=== PATIENT | male | born 1995 | race Caucasian/White ===

== ENCOUNTER 2019-04-22 07:53 | Emergency (ER) | payer BC, OTHER ==
--- NOTE | 2019-04-22 08:23 | ED ---
GI/ HPI - HPI Summary HPI Summary: This patient is a 23 year old M presenting to ED with a chief complaint of intermittent right groin pain since 0445 this morning. Patient had just finished masturbating and then the pain occurred, which lasted 30 seconds, and then disappeared. He says the pain was present where his right testicle connects to the body. The pain however returned later and the patient now reports an aching discomfort to the area. Patient denies dysuria. The patient rates the pain 2/10 in severity. Symptoms aggravated by nothing. Symptoms alleviated by nothing. Patient denies cough. - History of Current Complaint Chief Complaint: EDUrogenitalProblems Time Seen by Provider: 04/22/19 08:13 Stated Complaint: TESTICULAR PAIN PER PT Hx Obtained From: Patient Onset/Duration: Started Hours Ago - At 0445 this morning, Still Present - Now as an ache Timing: Intermittent, Lasting Seconds - 30 seconds Severity: Moderate Current Severity: Mild Pain Intensity: 2 Additional Locations for Males: Testicles - Right Pain Characteristics: Aching Associated Signs and Symptoms: Positive: Negative - Cough. Negative: Dysuria Aggravating Factor(s): Nothing Alleviating Factor(s): Nothing - Allergy/Home Medications Allergies/Adverse Reactions: Allergies Allergy/AdvReac Type Severity Reaction Status Date / Time No Known Allergies Allergy Verified 04/22/19 07:58 PMH/Surg Hx/FS Hx/Imm Hx Endocrine/Hematology History: Denies: Hx Diabetes, Hx Thyroid Disease Cardiovascular History: Denies: Hx Hypertension Respiratory History: Denies: Hx Asthma, Hx Chronic Obstructive Pulmonary Disease (COPD) GI History: Denies: Hx Ulcer - Surgical History Surgery Procedure, Year, and Place: Denies Infectious Disease History: No Infectious Disease History: Denies: Hx Clostridium Difficile, Hx Hepatitis, Hx Human Immunodeficiency Virus (HIV), Hx of Known/Suspected MRSA, Hx Tuberculosis, Hx Known/Suspected VRE , Hx Known/Suspected VRSA, History Other Infectious Disease, Traveled Outside the [place] in Last 30 Days - Family History Known Family History: Positive: Hypertension Negative: Cardiac Disease - Social History Alcohol Use: None Hx Substance Use: No Substance Use Type: Reports: None Hx Tobacco Use: No Smoking Status (MU): Never Smoked Tobacco Review of Systems Negative: Cough Genitourinary: Other - Right groin pain Negative: dysuria All Other Systems Reviewed And Are Negative: Yes Physical Exam - Summary Physical Exam Summary: Appearance: The patient is well-nourished in no acute distress and in no acute pain. Skin: The skin is warm and dry, and skin color reflects adequate perfusion. HEENT: The head is normocephalic and atraumatic. The pupils are equal and reactive. The conjunctivae are clear and without drainage. Nares are patent and without drainage. Mouth reveals moist mucous membranes, and the throat is without erythema and exudate. The external ears are intact. The ear canals are patent and without drainage. The tympanic membranes are intact. Neck: The neck is supple with full range of motion and non-tender. There are no carotid bruits. There is no neck vein distension. Respiratory: Chest is non-tender. Lungs are clear to auscultation and breath sounds are symmetrical and equal. Cardiovascular: Heart is regular rate and rhythm. There is no murmur or rub auscultated. There is no peripheral edema and pulses are symmetrical and equal. Abdomen: The abdomen is soft and non-tender. There are normal bowel sounds heard in all four quadrants and there is no organomegaly palpated. : Tenderness to the right epididymus. Intact cremaster reflex. Musculoskeletal: There is no back tenderness noted. Extremities are non-tender with full range of motion. There is good capillary refill. There is no peripheral edema or calf tenderness elicited. Neurological: Patient is alert and oriented to person, place and time. The patient has symmetrical motor strength in all four extremities. Cranial nerves are grossly intact. Deep tendon reflexes are symmetrical and equal in all four extremities. Psychiatric: The patient has an appropriate affect and does not exhibit any anxiety or depression. Triage Information Reviewed: Yes Vital Signs On Initial Exam: Initial Vitals Temp Pulse Resp BP Pulse Ox 99.7 F 130 19 137/57 98 04/22/19 07:55 04/22/19 07:55 04/22/19 07:55 04/22/19 07:55 04/22/19 07:55 Vital Signs Reviewed: Yes Procedures - Sedation Patient Received Moderate/Deep Sedation with Procedure: No Diagnostics - Vital Signs Vital Signs Temp Pulse Resp BP Pulse Ox 04/22/19 07:55 99.7 F 130 19 137/57 98 - Laboratory Lab Statement: Any lab studies that have been ordered have been reviewed, and results considered in the medical decision making process. - Ultrasound Testicular Ultrasound Interpretation Completed By: Radiologist Summary of Ultrasound Findings: 1. NO TESTICULAR PARENCHYMAL MASS. 2. NO SONOGRAPHIC FEATURES OF TORSION. PLEASE NOTE THAT PARTIAL OR INTERMITTENT TORSION MAY BE SONOGRAPHICALLY NORMAL. 3. NO APPRECIABLE RIGHT INGUINAL HERNIA. Dr. Walsh has reviewed this radiology report. Re-Evaluation - Re-Evaluation First Eval Re-Evaluation Time: 10:29 Comment: Discussed results with patient. Patient will be discharged home with dx of testicular pain. Patient understands and agrees with this plan. GIGU Course/Dx - Course Course Of Treatment: Mr. Coles was mildly tender diffusely over the testicle on the right. His cremasteric reflex was intact. He was tender to palpate the epididymis. Ultrasound was unremarkable. This could represent a torsion that detorsed before he came. There is no sign of torsion at this time and is not appear to have epididymitis. I recommended follow-up with urology and return if the pain returns. - Diagnoses Provider Diagnoses: Testicular pain Discharge ED - Sign-Out/Discharge Documenting (check all that apply): Patient Departure - Discharge - Discharge Plan Condition: Stable Disposition: HOME Patient Education Materials: Testicle Pain (ED) Referrals: Yvon Ramirez MD [Medical Doctor] - [facility] [Outside] Additional Instructions: Please follow-up with your primary care physician in 2-3 days. Please follow-up with Dr. Ramirez, urologist, within 2-3 days. PLEASE RETURN TO THE ER FOR WORSENING OR CHANGING SYMPTOMS. It was a pleasure taking care of you today. - Billing Disposition and Condition Condition: STABLE Disposition: Home - Attestation Statements Document Initiated by Chelsea: Yes Documenting Scribe: Jerome Aparicio Provider For Whom Chelsea is Documenting (Include Credential): Sai Walsh MD Scribe Attestation: I, Jerome Apraicio, scribed for Sai Walsh MD on 04/22/19 at 1616. Scribe Documentation Reviewed: Yes Provider Attestation: The documentation as recorded by the Jerome lunsford accurately reflects the service I personally performed and the decisions made by me, Sai Walsh MD Status of Scribe Document: Viewed
[2019-04-22 10:42] VITALS: BP 106/71
== END 2019-04-22 10:38 | disposition home or self-care (01) ==
LOC: ED 07:53
DX: N50.811 Right testicular pain (principal)
CPT/HCPCS: 76870; 99282

== ENCOUNTER 2019-04-23 15:58 | Emergency (ER) | payer BC ==
[2019-04-23 22:39] LABS: Urine Appearance Clear; Urine Bilirubin Negative (Negative); Urine Blood 1+ (Negative); Urine Color Yellow; Urine Glucose Negative (Negative); Urine Ketones Negative (Negative); Urine Nitrite Negative (Negative); Urine Protein 1+(30 mg/dL) (Negative); Urine Specific Gravity 1.036 (1.010-1.030); Urine Urobilinogen Negative (Negative)
[2019-04-23 22:43] LABS: Urine Bacteria Absent (Absent); Urine Red Blood Cell 3+(>10/hpf) (Absent); Urine White Blood Cell Trace(0-5/hpf) (Absent)
--- NOTE | 2019-04-24 00:01 | ED ---
GI/ HPI - HPI Summary HPI Summary: The patient is a 23 y/o male presenting to [facility] with a chief complaint of bilateral testicular pain worsening throughout the day. He reports that he initially had a severe pain in the left testicle yesterday which resolved with mild lingering soreness, but today he began to experience a flicking sensation every 30 seconds to 3 minutes in the right testicle. The testicular pain radiates into the right flank. He denies any fever, nausea, vomiting, dysuria, or burning with urination. Symptoms are currently rated 5/10 in severity. He has not taken any medications [facility] for treatment. He notes an unhealthy diet. There is no concern for STIs or STDs. No PMHx. Nonsmoker, no EtOH, no substance use. Medications reviewed. Allergies noted. - History of Current Complaint Chief Complaint: EDUrogenitalProblems Time Seen by Provider: 04/23/19 22:11 Stated Complaint: GROIN PAIN Hx Obtained From: Patient Onset/Duration: Started Hours Ago, Still Present Timing: Intermittent, Lasting Seconds, Lasting Minutes Severity: Mild Current Severity: Moderate Pain Intensity: 5 Additional Locations for Males: Testicles Pain Characteristics: Other: - "flicking" Pain Radiates to: Flank Associated Signs and Symptoms: Negative: Nausea, Vomiting, Fever, Dysuria, UTI Symptoms Aggravating Factor(s): Nothing Alleviating Factor(s): Nothing - Allergy/Home Medications Allergies/Adverse Reactions: Allergies Allergy/AdvReac Type Severity Reaction Status Date / Time No Known Allergies Allergy Verified 04/23/19 22:49 PMH/Surg Hx/FS Hx/Imm Hx Endocrine/Hematology History: Denies: Hx Diabetes, Hx Thyroid Disease Cardiovascular History: Denies: Hx Hypertension Respiratory History: Denies: Hx Asthma, Hx Chronic Obstructive Pulmonary Disease (COPD) GI History: Denies: Hx Ulcer - Surgical History Surgical History: None Surgery Procedure, Year, and Place: Denies Infectious Disease History: No Infectious Disease History: Denies: Hx Clostridium Difficile, Hx Hepatitis, Hx Human Immunodeficiency Virus (HIV), Hx of Known/Suspected MRSA, Hx Tuberculosis, Hx Known/Suspected VRE , Hx Known/Suspected VRSA, History Other Infectious Disease, Traveled Outside the [place] in Last 30 Days - Family History Known Family History: Positive: Hypertension Negative: Cardiac Disease - Social History Alcohol Use: None Hx Substance Use: No Substance Use Type: Reports: None Hx Tobacco Use: No Smoking Status (MU): Never Smoked Tobacco Review of Systems Negative: Fever Negative: Vomiting, Nausea Positive: flank pain - right, other - bilateral testicular pain worse on right. Negative: burning, dysuria All Other Systems Reviewed And Are Negative: Yes Physical Exam - Summary Physical Exam Summary: Constitutional: Well-developed, Well-nourished, Alert. (-) Distressed Skin: Warm, Dry HENT: Normocephalic; Atraumatic Eyes: Conjunctiva normal Neck: Musculoskeletal ROM normal neck. (-) JVD, (-) Stridor, (-) Tracheal deviation Cardio: Rhythm regular, rate normal, Heart sounds normal; Intact distal pulses; The pedal pulses are 2+ and symmetric. Radial pulses are 2+ and symmetric. Pulmonary/Chest wall: Effort normal. (-) Respiratory distress, (-) Wheezes, (-) Rales Abd: Soft, (-) tenderness, (-) Distension, (-) Guarding, (-) Rebound Musculoskeletal: (-) Edema Neuro: Alert, Oriented x3 Psych: Mood and affect Normal : Uncircumcised penis, Normal testicular lie, Normal bilateral cremasteric reflexes, (-) Testicular tenderness, (-) Lesions, (-) Hernias Triage Information Reviewed: Yes Vital Signs On Initial Exam: Initial Vitals Temp Pulse Resp BP Pulse Ox 99.5 F 114 19 117/78 99 04/23/19 16:18 04/23/19 16:18 04/23/19 16:18 04/23/19 16:18 04/23/19 16:18 Vital Signs Reviewed: Yes Procedures - Sedation Patient Received Moderate/Deep Sedation with Procedure: No Diagnostics - Vital Signs Vital Signs Temp Pulse Resp BP Pulse Ox 04/23/19 20:32 98.1 F 84 16 126/57 97 04/23/19 18:58 98.7 F 82 19 117/70 81 04/23/19 16:18 99.5 F 114 19 117/78 99 - Laboratory Lab Results: Lab Results 04/23/19 Range/Units 22:11 Urine Color Yellow Urine Appearance Clear Urine pH 6.0 (5-9) Ur Specific [place] 1.036 H (1.010-1.030) Urine Protein 1+(30 mg/dl) A (Negative) Urine Ketones Negative (Negative) Urine Blood 1+ A (Negative) Urine Nitrate Negative (Negative) Urine Bilirubin Negative (Negative) Urine Urobilinogen Negative (Negative) Ur Leukocyte Esterase Negative (Negative) Urine WBC (Auto) Trace(0-5/hpf) (Absent) Urine RBC (Auto) 3+(>10/hpf) A (Absent) Urine Bacteria Absent (Absent) Urine Glucose Negative (Negative) Result Diagrams: 04/24/19 00:08 04/24/19 00:08 Lab Statement: Any lab studies that have been ordered have been reviewed, and results considered in the medical decision making process. - CT Abd/Pel CT CT Interpretation Completed By: Radiologist Summary of CT Findings: Impression: No visible renal, ureteral or bladder calculi. ED physician has reviewed this report. - Ultrasound Testicular US Ultrasound Interpretation Completed By: Radiologist Summary of Ultrasound Findings: Impression: No testicular torsion, orchitis or epididymitis and no evidence for inguinal hernia. ED physician has reviewed this report. Re-Evaluation - Re-Evaluation First Eval Re-Evaluation Time: 04:00 Comment: We discussed results and plan for discharge. GIGU Course/Dx - Course Course Of Treatment: Patient is a 23 y/o male presenting with testicular pain worse on the right than the left described as a flicking sensation intermittent over the last day, which radiates into the right flank. Denies any urinary symptoms, nausea, vomiting, or fever. No concern for STIs or STDs. Physical exam reveals uncircumcised penis with ormal testicular lie, normal bilateral cremasteric reflexes, no testicular tenderness, no lesions, and no hernias. Lab results show slight anemia. All other abnormal lab results are not pertinent to current cc. UA obtained and reveals 1+ blood, 3+ RBCs. Testicular US is negative for torsion, orchitis, epididymitis, or inguinal hernia. Abd/Pel CT is negative for calulus. Patient is safe for discharge. Patient agrees with plan. - Diagnoses Provider Diagnoses: Testicular pain, Hematuria Discharge ED - Sign-Out/Discharge Documenting (check all that apply): Patient Departure - Patient will be discharged home. - Discharge Plan Condition: Stable Disposition: HOME Patient Education Materials: Testicle Pain (ED), Hematuria (ED) Referrals: [facility] [Outside] - 3 Days Additional Instructions: Follow up with your primary care provider in 2-3 days. Return to the emergency department for any new or worsening symptoms. - Attestation Statements Document Initiated by Scribe: Yes Documenting Scribe: Christine Sauer Provider For Whom Scribe is Documenting (Include Credential): Dr. Luther Alcala MD Scribe Attestation: IChristine, scribed for Dr. Luther Alcala MD on 04/24/19 at 0403. Status of Scribe Document: Ready
[2019-04-24 00:15] LABS: ABS Basophils 0.1 10^3/ul (0-0.2); ABS Eosinophils 0.2 10^3/ul (0-0.6); ABS Lymphocytes 2.5 10^3/ul (1.0-4.8); ABS Monocytes 0.9 10^3/ul (0-0.8); ABS Neutrophils 4.4 10^3/ul (1.5-7.7); Hematocrit 39 % (42-52); Hemoglobin 12.9 g/dL (14.0-18.0); Lymphocyte % 30.8 %; Mean Corpuscular HGB Conc 33 g/dL (31-36); Mean Corpuscular Hemoglobin 26 pg (27-31); Mean Corpuscular Volume 78 fL (80-94); Mean Platelet Volume 8.1 fL (7.4-10.4); Nucleated Red Blood Cells % 0.1; Platelet Count 194 10^3/uL (150-450); Red Blood Count 5.05 10^6 /uL (4.18-5.48); Red Cell Distribution Width 14 % (10-15)
[2019-04-24 00:53] LABS: Albumin 4.8 g/dL (3.2-5.2); Albumin/Globulin Ratio 1.8 (1-3); BUN/Creatinine Ratio 12.6 (8-20); Calcium 9.6 mg/dL (8.6-10.3); EGFR African American 99.3 (>60); EGFR Non-African American 82.1 (>60); Globulin 2.7 g/dL (2-4); Indirect Bilirubin 0.7 mg/dL (0.3-1.0); Potassium 3.6 mmol/L (3.5-5.0); Total Bilirubin 0.9 mg/dL (0.2-1.0); Total Protein 7.5 g/dL (6.4-8.9)
[2019-04-24 04:10] VITALS: BP 109/68
== END 2019-04-24 04:08 | disposition home or self-care (01) ==
LOC: ED 15:58
DX: N50.811 Right testicular pain (principal); N50.812 Left testicular pain; R31.9 Hematuria, unspecified
CPT/HCPCS: 36415; 74176; 76870; 80048; 80076; 81003; 81015; 83690; 85025; 87086; 99283

== ENCOUNTER 2019-05-09 08:31 | Emergency (ER) | payer BC ==
--- NOTE | 2019-05-09 09:15 | ED ---
GI/ HPI - HPI Summary HPI Summary: This patient is a 23 year old male presenting to [facility] with a chief complaint of testicular pain since 2 weeks ago. He states it started on the right side, radiated to the left side, and radiates up to his RLQ abdomen and right flank. He describes the pain as a sharp pain. He was seen here 2 weeks ago and was negative for torsion and kidney stones. He rates his pain 10/10 in severity. He states there is some dysuria and burning when he urinates. He reports nausea, denies fever, chills, vomiting. He denies hematuria, drainage. - History of Current Complaint Chief Complaint: EDUrogenitalProblems Time Seen by Provider: 05/09/19 08:47 Stated Complaint: GROIN PAIN PER PT Pain Intensity: 4 - Allergy/Home Medications Allergies/Adverse Reactions: Allergies Allergy/AdvReac Type Severity Reaction Status Date / Time No Known Allergies Allergy Verified 04/23/19 22:49 Home Medications: Home Medications Aspirin 325 mg PO DAILY 05/09/19 [History Confirmed 05/09/19] PMH/Surg Hx/FS Hx/Imm Hx Endocrine/Hematology History: Denies: Hx Diabetes, Hx Thyroid Disease Cardiovascular History: Denies: Hx Hypertension Respiratory History: Denies: Hx Asthma, Hx Chronic Obstructive Pulmonary Disease (COPD) GI History: Denies: Hx Ulcer - Surgical History Surgery Procedure, Year, and Place: Denies Infectious Disease History: No Infectious Disease History: Denies: Hx Clostridium Difficile, Hx Hepatitis, Hx Human Immunodeficiency Virus (HIV), Hx of Known/Suspected MRSA, Hx Tuberculosis, Hx Known/Suspected VRE , Hx Known/Suspected VRSA, History Other Infectious Disease, Traveled Outside the [place] in Last 30 Days - Family History Known Family History: Positive: Hypertension Negative: Cardiac Disease - Social History Alcohol Use: None Hx Substance Use: No Substance Use Type: Reports: None Hx Tobacco Use: No Smoking Status (MU): Never Smoked Tobacco Review of Systems Negative: Fever, Chills Positive: Abdominal Pain, Nausea. Negative: Vomiting Positive: dysuria, flank pain, pain - Testicular. Negative: discharge, hematuria All Other Systems Reviewed And Are Negative: Yes Physical Exam - Summary Physical Exam Summary: Constitutional: Well-developed, Well-nourished, Alert. (-) Distressed Skin: Warm, Dry HENT: Normocephalic; Atraumatic Eyes: Conjunctiva normal Neck: Musculoskeletal ROM normal neck. (-) JVD, (-) Stridor, (-) Tracheal deviation Cardio: Rhythm regular, rate normal, Heart sounds normal; Intact distal pulses; The pedal pulses are 2+ and symmetric. Radial pulses are 2+ and symmetric. (-) Murmur Pulmonary/Chest wall: Effort normal. (-) Respiratory distress, (-) Wheezes, (-) Rales Abd: Soft, (-) tenderness, (-) Distension, (-) Guarding, (-) Rebound Musculoskeletal: (-) Edema Lymph: (-) Cervical adenopathy Neuro: Alert, Oriented x3 Psych: Mood and affect Normal : No testicular masses, cremastreric reflex present bilaterally. No lymphadenopathy, no discharge, no inguinal hernia bilaterally. Triage Information Reviewed: Yes Vital Signs On Initial Exam: Initial Vitals Temp Pulse Resp BP Pulse Ox 97.6 F 99 18 124/80 99 05/09/19 08:35 05/09/19 08:35 05/09/19 08:35 05/09/19 08:35 05/09/19 08:35 Vital Signs Reviewed: Yes Procedures - Sedation Patient Received Moderate/Deep Sedation with Procedure: No Diagnostics - Vital Signs Vital Signs Temp Pulse Resp BP Pulse Ox 05/09/19 08:35 97.6 F 99 18 124/80 99 - Laboratory Result Diagrams: 05/09/19 09:56 05/09/19 09:56 Lab Statement: Any lab studies that have been ordered have been reviewed, and results considered in the medical decision making process. - Ultrasound No standard instances Ultrasound Interpretation Completed By: Radiologist Summary of Ultrasound Findings: Testicular: No sonographic evidence of torsion. Unchanged grayscale appearance of the testes with no mass identified. ED Provider has reviewed this report. GIGU Course/Dx - Course Course Of Treatment: Patient is here with testicular pain for the past 2 weeks. Patient's pain radiated into his right groin. Patient had a normal testicular exam with no evidence of torsion, mass, hernia, STD. Patient is not sexually active and denies all STD risk factors. Patient had a repeat ultrasound showed no change. Patient normal blood work. Patient had a UA which showed some blood in his urine. Patient was given urology for follow-up for further evaluation. - Diagnoses Provider Diagnoses: Testicular pain, Microscopic hematuria Discharge ED - Sign-Out/Discharge Documenting (check all that apply): Patient Departure - Discharge - Discharge Plan Condition: Stable Disposition: HOME Patient Education Materials: Testicle Pain (ED) Referrals: Yvon Ramirez MD [Medical Doctor] - Additional Instructions: Come back with any abnormal or concerning symptoms. Put ice on your testicles if experiencing pain. - Billing Disposition and Condition Condition: STABLE Disposition: Home - Attestation Statements Document Initiated by Scribe: Yes Documenting Scribe: Frank Singleton Provider For Whom Scribe is Documenting (Include Credential): Leeroy Taylor MD Scribe Attestation: Frank Costa, scribed for Leeroy Taylor MD on 05/09/19 at 1055. Scribe Documentation Reviewed: Yes Provider Attestation: The documentation as recorded by the scribeFrank accurately reflects the service I personally performed and the decisions made by me, Leeroy Taylor MD Status of Scribe Document: Viewed
[2019-05-09 09:27] LABS: Urine Appearance Clear; Urine Bilirubin Negative (Negative); Urine Blood 1+ (Negative); Urine Color Straw; Urine Glucose Negative (Negative); Urine Ketones Negative (Negative); Urine Nitrite Negative (Negative); Urine Protein Negative (Negative); Urine Specific Gravity 1.011 (1.010-1.030); Urine Urobilinogen Negative (Negative)
[2019-05-09 09:35] LABS: Urine Bacteria Absent (Absent); Urine Red Blood Cell Trace(0-2/hpf) (Absent); Urine White Blood Cell Absent (Absent)
[2019-05-09 10:02] LABS: ABS Eosinophils 0.2 10^3/ul (0-0.6); ABS Lymphocytes 2.3 10^3/ul (1.0-4.8); ABS Monocytes 0.8 10^3/ul (0-0.8); ABS Neutrophils 5.6 10^3/ul (1.5-7.7); Eosinophil % 2.5 %; Hematocrit 40 % (42-52); Hemoglobin 13.2 g/dL (14.0-18.0); Lymphocyte % 26.2 %; Mean Corpuscular HGB Conc 33 g/dL (31-36); Mean Corpuscular Hemoglobin 26 pg (27-31); Mean Corpuscular Volume 78 fL (80-94); Platelet Count 200 10^3/uL (150-450); Red Blood Count 5.16 10^6 /uL (4.18-5.48); Red Cell Distribution Width 14 % (10-15)
[2019-05-09 10:18] LABS: Anion Gap 8 mmol/L (2-11); BUN/Creatinine Ratio 17.2 (8-20); Blood Urea Nitrogen 17 mg/dL (6-24); C Reactive Protein < 1.00 mg/L (<8.01); CO2 Carbon Dioxide 27 mmol/L (22-32); Calcium 9.7 mg/dL (8.6-10.3); Chloride 104 mmol/L (101-111); EGFR African American 113.4 (>60); EGFR Non-African American 93.7 (>60); Glucose 96 mg/dL (70-100); Potassium 3.8 mmol/L (3.5-5.0); Sodium 139 mmol/L (135-145)
[2019-05-09 10:56] VITALS: BP 105/64
[2019-05-10 13:23] LABS: Chlamydia trachomatis NAA Negative (Negative); Neisseria gonorrhoeae (GC) NAA Negative (Negative)
== END 2019-05-09 10:55 | disposition home or self-care (01) ==
LOC: ED 08:31
DX: N50.811 Right testicular pain (principal); N50.812 Left testicular pain; R31.29 Other microscopic hematuria; R11.0 Nausea; Z79.82 Long term (current) use of aspirin
CPT/HCPCS: 36415; 76870; 80048; 81003; 81015; 85025; 86140; 87491; 87591; 99282

== ENCOUNTER 2019-05-14 00:19 | Emergency (ER) | payer BC ==
[2019-05-14] MEDS ORDERED: Ibuprofen TAB* 600 MG PO ONE (00:55)
--- NOTE | 2019-05-14 01:00 | ED ---
GI/ HPI - HPI Summary HPI Summary: This pt is a 23 Y/O M presenting to [facility] with a CC of L testicular pain that is rated an 8/10 in severity. He states that the pain is intermittent. He reports that he feels that his L testicle is backwards and sideway. He states that his testicle is swelling with N/V and increased frequency with urination. He reports that this started at 2200 05/13/2019. He denies seeing an urologist. He reports that the symptoms have been present for 2 weeks. He has no other pertinent PMHx. He has no aggravating or alleviating factors. - History of Current Complaint Chief Complaint: EDUrogenitalProblems Time Seen by Provider: 05/14/19 00:50 Stated Complaint: L TESTICULAR PAIN PER PT Hx Obtained From: Patient Onset/Duration: Started Weeks Ago - 2, Still Present Timing: Intermittent Severity: Severe Current Severity: Severe Pain Intensity: 8 Additional Locations for Males: Testicles Associated Signs and Symptoms: Positive: Negative - headaches,, Nausea, Other: - states swelling of L testicle. Negative: Vomiting, Fever, Chills Aggravating Factor(s): Nothing Alleviating Factor(s): Nothing - Allergy/Home Medications Allergies/Adverse Reactions: Allergies Allergy/AdvReac Type Severity Reaction Status Date / Time No Known Allergies Allergy Verified 05/14/19 00:22 PMH/Surg Hx/FS Hx/Imm Hx Previously Healthy: Yes Endocrine/Hematology History: Denies: Hx Diabetes, Hx Thyroid Disease Cardiovascular History: Denies: Hx Hypertension Respiratory History: Denies: Hx Asthma, Hx Chronic Obstructive Pulmonary Disease (COPD) GI History: Denies: Hx Ulcer - Cancer History Hx Chemotherapy: No Hx Radiation Therapy: No - Surgical History Surgical History: None Surgery Procedure, Year, and Place: Denies - Immunization History Immunizations Up to Date: Yes Infectious Disease History: No Infectious Disease History: Denies: Hx Clostridium Difficile, Hx Hepatitis, Hx Human Immunodeficiency Virus (HIV), Hx of Known/Suspected MRSA, Hx Tuberculosis, Hx Known/Suspected VRE , Hx Known/Suspected VRSA, History Other Infectious Disease, Traveled Outside the [place] in Last 30 Days - Family History Known Family History: Positive: Hypertension Negative: Cardiac Disease - Social History Occupation: Employed Full-time Lives: With Family Alcohol Use: None Hx Substance Use: No Substance Use Type: Reports: None Hx Tobacco Use: No Smoking Status (MU): Never Smoked Tobacco Review of Systems Negative: Fever, Chills Positive: Nausea. Negative: Vomiting Genitourinary: Other - L testicular pain with swelling and rotation Positive: frequency - increased Negative: Headache All Other Systems Reviewed And Are Negative: Yes Physical Exam - Summary Physical Exam Summary: Constitutional: Well-developed, Well-nourished, Alert. (-) Distressed Skin: Warm, Dry HENT: Normocephalic; Atraumatic Eyes: Conjunctiva normal Neck: Musculoskeletal ROM normal neck. (-) JVD, (-) Stridor, (-) Tracheal deviation Cardio: Rhythm regular, rate normal, Heart sounds normal; Intact distal pulses; The pedal pulses are 2+ and symmetric. Radial pulses are 2+ and symmetric. (-) Murmur Pulmonary/Chest wall: Effort normal. (-) Respiratory distress, (-) Wheezes, (-) Rales Abd: Soft, (-) tenderness, (-) Distension, (-) Guarding, (-) Rebound Musculoskeletal: (-) Edema Lymph: (-) Cervical adenopathy Neuro: Alert, Oriented x3 Psych: Mood and affect Normal GIGU: Normal, no testicular swelling and has normal lie. Triage Information Reviewed: Yes Vital Signs On Initial Exam: Initial Vitals Temp Pulse Resp BP Pulse Ox 99.3 F 94 16 118/70 100 05/14/19 00:20 05/14/19 00:20 05/14/19 00:20 05/14/19 00:20 05/14/19 00:20 Vital Signs Reviewed: Yes Procedures - Sedation Patient Received Moderate/Deep Sedation with Procedure: No Diagnostics - Vital Signs Vital Signs Temp Pulse Resp BP Pulse Ox 05/14/19 00:20 99.3 F 94 16 118/70 100 - Laboratory Lab Statement: Any lab studies that have been ordered have been reviewed, and results considered in the medical decision making process. GIGU Course/Dx - Course Course Of Treatment: This pt is a 23 Y/O M presenting to [facility] with a CC of L testicular pain that is rated an 8/10 in severity. He states that the pain is intermittent. He reports that he feels that his L testicle is backwards and sideway. He states that his testicle is swelling with nausea and increased frequency with urination. He denies any fevers, chills, vomiting, and headaches. He reports that this started at 2200 05/13/2019. He denies seeing an urologist. He reports that the symptoms have been present for 2 weeks. His PE found no acute abnormalities. His GIGU exam was normal, no testicular swelling and has normal lie. He will be discharged home with a Dx of testicular pain and a course of ABx to avoid UTI potential. - Diagnoses Provider Diagnoses: Testicular pain Discharge ED - Sign-Out/Discharge Documenting (check all that apply): Patient Departure - discharge - Discharge Plan Condition: Good Disposition: HOME Patient Education Materials: Scrotal Pain (ED) Referrals: Mark Ferro MD [Medical Doctor] - Additional Instructions: Getting in to see the urologist is the best thing right now, there isn't anything further we can do here in the ED. - Billing Disposition and Condition Condition: GOOD Disposition: Home - Attestation Statements Document Initiated by Scribe: Yes Documenting Scribe: Drew Cruz Provider For Whom Scribe is Documenting (Include Credential): Sai Russell MD Scribe Attestation: IDrew, scribed for Sai Russell MD on 05/14/19 at 1923. Scribe Documentation Reviewed: Yes Provider Attestation: The documentation as recorded by the Drew lunsford accurately reflects the service I personally performed and the decisions made by me, Sai Russell MD Status of Scribe Document: Viewed
[2019-05-14 01:15] LABS: Urine Appearance Clear; Urine Bilirubin Negative (Negative); Urine Blood 2+ (Negative); Urine Color Yellow; Urine Glucose Negative (Negative); Urine Ketones Negative (Negative); Urine Nitrite Negative (Negative); Urine Protein Negative (Negative); Urine Specific Gravity 1.017 (1.010-1.030); Urine Urobilinogen Negative (Negative)
[2019-05-14 01:17] LABS: Urine Bacteria Absent (Absent); Urine Red Blood Cell 3+(>10/hpf) (Absent); Urine Squamous Epithelial Cell Present (Absent); Urine White Blood Cell Trace(0-5/hpf) (Absent)
[2019-05-14] MEDS ORDERED: cefTRIAXone VIAL(*) 250 MG VIAL IM ONE (01:31)
[2019-05-14] MEDS ORDERED: Lidocaine 1% MPF ** 5 ML VIAL IM ONE (01:31)
[2019-05-14] MEDS ORDERED: Azithromycin TAB* 250 MG PO ONE (01:31)
[2019-05-14 02:08] VITALS: BP 96/69
== END 2019-05-14 02:07 | disposition home or self-care (01) ==
LOC: ED 00:19
DX: N50.812 Left testicular pain (principal); N50.89 Other specified disorders of the male genital organs; R35.0 Frequency of micturition; R11.0 Nausea
CPT/HCPCS: 81003; 81015; 87086; 96372; 99282; A9270-GY; J0696